=== PATIENT | female | born 1985 | race Caucasian/White ===

== ENCOUNTER 2025-02-01 11:42 | Outpatient (CLI) | payer OTHER, SELFPAY ==
--- NOTE | ~2025-02-01 | MMUS_ITS ---
EXAMINATION: MM diagnostic cat BI w ever, US breast BI limited HISTORY: 39-year-old woman with a maternal history of breast cancer, diagnosed in a maternal aunt in her 50s, presents for diagnostic evaluation of a palpable abnormality within the left breast. TECHNIQUE: Craniocaudal, mediolateral oblique and true lateral 3-D tomosynthesis images were obtained and synthetic 2-D images were generated. CAD analysis was submitted and interpreted. Bilateral focused breast ultrasound was performed with additional ultrasound evaluation of the left a xilla. COMPARISON: No prior images have been performed. Today is patient's baseline examination. BREAST PARENCHYMAL COMPOSITION: Not Dense. There are scattered areas of fibroglandular density. FINDINGS: MAMMOGRAPHIC FINDINGS: Within the posterior, upper outer, LEFT breast (the area of palpable concern) is a spiculated mass me asuring 35 x 32 x 39 mm (anterior to posterior x medial to lateral x cranial to caudal dimension). Deep within the LEFT axilla, incompletely evaluated on the current examination are 2 morphologically suspicious lymph nodes, for which focused ultrasound examination will be performed. No additional abnormal mammographic findings are identified within the left breast. Within the upper outer quadrant of the RIGHT breast, deep to the nipple is an irregular asymmetry, fo r which focused ultrasound will be performed. In addition within the right breast is a well-circumscribed 3 mm density, likely a cyst within the up per outer quadrant approximately 10 cm from the nipple, for which ultrasound will also be performed. No suspicious microcalcifications are identified. No discrete architectural distortion is noted. ULTRASOUND: LEFT BREAST: Within the area of palpable concern: 11:00 position of the left breast approximately 6 cm from the nipple is a 40 x 24 x 29 mm solid mass with irregular margins, microlobulations and peripheral vascularity. At the 1:00 position of the left breast approximately 13 cm from the nipple is a morphologically susp icious, nonpathologically enlarged lymph node measuring 9 x 8.4 x 10.1 mm. At the 12:00 position of the left breast approximately 12 cm from the nipple is an irregular reniform shaped mass measuring 39 x 18 x 31 mm, consistent with the abnormal finding on mammography within th e left axilla. This focus is presumed to be an abnormal lymph node, and is set within the (likely pec toralis) musculature. RIGHT BREAST: At the 11:00 position of the right breast approximately 8 cm from the nipple is a well-circumscribed anechoic avascular focus measuring 2.8 mm in greatest dimension, consistent with a simple cyst for wh ich no further follow-up is needed. Within the upper outer periareolar position of the right breast is an irregular shadowing focus with angular margins and adjacent vascularity, consistent with the finding detected on mammography. IMPRESSION: Multiple findings within the left breast for which ultrasound-guided biopsy is recommended. The primary mass (at 11:00), as well as the morphologically suspicious retropectoral lymph node at th e 12:00 position. In addition, ultrasound-guided biopsy of the abnormality within the upper outer periareolar position of the right breast should also be sampled. BI-RADS category 5, highly suggestive of malignancy. Referral to a breast surgeon may also be performed Reviewed, dictated and finalized at location A. IMPRESSION: Multiple findings within the left breast for which ultrasound-guided biopsy is recommended. The primary mass (at 11:00), as well as the morphologically suspicious retropec rory lymph node at the 12:00 position. In addition, ultrasound-guided biopsy of the abnormality within the upper outer periareolar position of the right breast should also be sampled. BI-RADS category 5, highly suggestive of malignancy. Referral to a breast surgeon may also be performed
== END 2025-02-01 11:43 | disposition home or self-care (01) ==
PROVIDERS: PCP Physician Assistant; Visit Provider Physician Assistant
DX: R92.8 Other abnormal and inconclusive findings on diagnostic imaging of breast (principal); N63.22 Unspecified lump in the left breast, upper inner quadrant; N63.41 Unspecified lump in right breast, subareolar; N63.11 Unspecified lump in the right breast, upper outer quadrant
CPT/HCPCS: 76642; 77062; 77066; G0279